=== PATIENT | female | born 1980 | race American Indian/Alaskan Native ===

== ENCOUNTER 2019-07-05 02:40 | Emergency (ER) | payer MEDICAID ==
[2019-07-05] MEDS ORDERED: Sodium Chloride 0.9% 10 ML Syringe FLUSH PRN (02:48)
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
[2019-07-05] MEDS ORDERED: Bacitracin Oint 1 GM U/D Packet ONE (04:20)
[2019-07-05] MEDS ORDERED: Bacitracin Oint 1 GM U/D Packet TOP ONE (04:57)
[2019-07-05] MEDS ORDERED: Acetaminophen 325 MG Tab PO ONE (06:54)
[2019-07-05] MEDS ORDERED: Acetaminophen 325 MG Tab, 50 Tab Bulk Bottle PO ONE (10:32)
[2019-07-05] MEDS ORDERED: Acetaminophen 500 MG Tab PO ONE (10:37)
== END 2019-07-05 11:32 | disposition home or self-care (01) ==
LOC: JP.ED 02:40
DX: S01.511A Laceration without foreign body of lip, initial encounter (principal); S51.812A Laceration without foreign body of left forearm, initial encounter; F10.920 Alcohol use, unspecified with intoxication, uncomplicated; R45.1 Restlessness and agitation; Z88.5 Allergy status to narcotic agent; Z88.8 Allergy status to other drugs, medicaments and biological substances; Y09 Assault by unspecified means; Y92.810 Car as the place of occurrence of the external cause
CPT/HCPCS: 12005; 36415; 70450; 70486; 80053; 84703; 85025; 99284; 99285-25; A9270-GY; G0480

== ENCOUNTER 2020-01-19 08:28 | Emergency (ER) | payer MEDICAID ==
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
--- NOTE | 2020-01-19 09:54 | CR ---
Shoulder Comp Rt CLINICAL HISTORY: CHF FINDINGS: There is no acute fracture or dislocation in the right shoulder. Impression: Negative
== END 2020-01-19 09:53 | disposition home or self-care (01) ==
LOC: JP.ED 08:28
DX: F41.9 Anxiety disorder, unspecified (principal); F10.129 Alcohol abuse with intoxication, unspecified; Z95.0 Presence of cardiac pacemaker; Z88.5 Allergy status to narcotic agent; Z88.8 Allergy status to other drugs, medicaments and biological substances; Z88.6 Allergy status to analgesic agent; Z98.890 Other specified postprocedural states; Y90.5 Blood alcohol level of 100-119 mg/100 ml
CPT/HCPCS: 36415; 73030-26-RT; 73030-RT; 80053; 80305-QW; 80307; 81001; 85025; 99283; 99284-25

== ENCOUNTER 2023-01-27 18:23 | Emergency (ER) | payer MEDICAID ==
[2023-01-27] MEDS ORDERED: cefTRIAXone 1 GM in Sodium Chloride 0.9% 50 ML IV ONE (19:44)
[2023-01-27] MEDS ORDERED: Sodium Chloride 0.9% 1,000 ML IV SCH (19:45)
[2023-01-27] MEDS ORDERED: Ondansetron 4 MG/2 ML SDV IVPUSH ONE (19:46)
[2023-01-27 19:50] LABS: APPEARANCE,URINE SLIGHTLY CLOUDY (CLEAR); BILIRUBIN,URINE NEGATIVE (NEGATIVE); COLOR,URINE YELLOW (YELLOW); GLUCOSE,URINE NEGATIVE (NEGATIVE); KETONES,URINE TRACE mg/dL (NEGATIVE); LEUKOCYTE ESTERASE,URINE SMALL (NEGATIVE); NITRITE,URINE NEGATIVE (NEGATIVE); OCCULT BLOOD,URINE LARGE (NEGATIVE); PH,URINE 5.5 (5.0-8.0); PROTEIN,URINE 30 mg/dL (NEGATIVE); UROBILINOGEN,URINE 0.2 EU/dL (0.2-1.0)
[2023-01-27 19:56] LABS: EPITHELIAL CELLS,URINE MANY; MUCUS,URINE NOT SEEN
[2023-01-27 19:56] LABS: BASOPHILS ABSOLUTE AUTO 0.04 K/uL (0.00-0.10); BASOPHILS PERCENT AUTO 0.2 % (0.1-1.3); EOSINOPHILS PERCENT AUTO 0.1 % (0.0-5.4); HEMATOCRIT 32.5 % (34.3-46.0); HEMOGLOBIN 11.1 g/dL (11.2-15.5); IMMATURE GRAN ABSOLUTE AUTO 0.12 K/uL (0.00-0.23); IMMATURE GRAN PERCENT AUTO 0.7 % (0.0-0.7); LYMPHOCYTES ABSOLUTE AUTO 1.32 K/uL (0.8-3.3); LYMPHOCYTES PERCENT AUTO 7.8 % (11.4-47.7); MEAN CORPUSCULAR HEMOGLOBIN 30.5 pg (31.6-35.5); MEAN CORPUSCULAR HGB CONC 34.2 g/dL (31.6-35.5); MEAN CORPUSCULAR VOLUME 89.3 fL (81.4-99.0); MONOCYTES ABSOLUTE AUTO 1.01 K/uL (0.20-0.90); NEUTROPHILS ABSOLUTE AUTO 14.46 K/uL (1.0-7.6); NEUTROPHILS PERCENT AUTO 85.2 % (40.0-78.1); PLATELET COUNT,PLT 240 K/uL (130-375); RED BLOOD CELL COUNT 3.64 M/uL (3.77-5.24)
[2023-01-27 19:57] LABS: AMORPHOUS SEDIMENT,URINE FEW; BACTERIA,URINE MODERATE
[2023-01-27] MEDS ORDERED: Sodium Chloride 0.9% 50 ML IV SCH (20:00)
[2023-01-27] MEDS ORDERED: Iopamidol 612 MG/ML 100 ML Bottle IV SCH (20:00)
[2023-01-27 20:01] LABS: EOSINOPHILS ABSOLUTE AUTO 0.01 K/uL (0.00-0.40)
[2023-01-27 20:13] LABS: EST CRCL DRUG DOSING (CG) 54.74 mL/min
[2023-01-27] MEDS ORDERED: Doxycycline 200 MG in Sodium Chloride 0.9% 250 ML IV ONE (20:44)
[2023-01-27] MEDS ORDERED: HYDROmorphone 1 MG/ML Syringe IVPUSH ONE (21:26)
[2023-01-27] MEDS ORDERED: Naloxone 0.4 MG/ML SDV IVPUSH PRN (21:26)
[2023-01-27] MEDS ORDERED: HYDROmorphone 0.5 MG/0.5 ML Syringe ONE (22:25)
[2023-01-31 11:12] LABS: CHLAMYDIA TRACHOMATIS, NAA Negative (Negative); NEISSERIA GONORRHOEAE, NAA Negative (Negative)
== END 2023-01-27 22:53 ==
LOC: JP.ED 18:23
DX: N70.93 Salpingitis and oophoritis, unspecified (principal); J45.909 Unspecified asthma, uncomplicated; Z88.5 Allergy status to narcotic agent; Z88.8 Allergy status to other drugs, medicaments and biological substances; Z72.0 Tobacco use; Z20.822 Contact with and (suspected) exposure to COVID-19
CPT/HCPCS: 36415; 74177; 80048; 81001; 81025; 82150; 83605; 85025; 87491; 87591; 87635; 96365; 96366; 96367; 96375; 99284; 99285; J0696; J1170; J2405; J3490; J7030; J7050; Q9967; U0002

== ENCOUNTER 2023-02-05 12:50 | Emergency (ER) | payer MEDICAID ==
[2023-02-05] MEDS ORDERED: Sodium Chloride 0.9% 10 ML Syringe FLUSH PRN (13:54)
[2023-02-05 14:10] LABS: BASOPHILS ABSOLUTE AUTO 0.05 K/uL (0.00-0.10); BASOPHILS PERCENT AUTO 0.8 % (0.1-1.3); EOSINOPHILS ABSOLUTE AUTO 0.03 K/uL (0.00-0.40); EOSINOPHILS PERCENT AUTO 0.5 % (0.0-5.4); HEMATOCRIT 33.1 % (34.3-46.0); HEMOGLOBIN 11.2 g/dL (11.2-15.5); IMMATURE GRAN ABSOLUTE AUTO 0.03 K/uL (0.00-0.23); IMMATURE GRAN PERCENT AUTO 0.5 % (0.0-0.7); LYMPHOCYTES ABSOLUTE AUTO 2.77 K/uL (0.8-3.3); LYMPHOCYTES PERCENT AUTO 46.2 % (11.4-47.7); MEAN CORPUSCULAR HEMOGLOBIN 29.9 pg (31.6-35.5); MEAN CORPUSCULAR HGB CONC 33.8 g/dL (31.6-35.5); MEAN CORPUSCULAR VOLUME 88.5 fL (81.4-99.0); MONOCYTES ABSOLUTE AUTO 0.31 K/uL (0.20-0.90); MONOCYTES PERCENT AUTO 5.2 % (3.3-12.6); NEUTROPHILS PERCENT AUTO 46.8 % (40.0-78.1); PLATELET COUNT,PLT 469 K/uL (130-375); RED BLOOD CELL COUNT 3.74 M/uL (3.77-5.24)
[2023-02-05 14:39] LABS: A/G RATIO 0.9 (1.2-2.2); ALANINE AMINOTRANSFERASE,ALT 55 U/L (12-78); ALBUMIN 3.5 g/dL (3.4-5.0); ALKALINE PHOSPHATASE 145 U/L (46-116); ASPARTATE AMNIOTRANSFERASE,AST 20 U/L (15-37); BILIRUBIN TOTAL 0.3 mg/dL (0.2-1.0); BLOOD UREA NITROGEN,BUN 16 mg/dL (7-18); CALCIUM 9.4 mg/dL (8.5-10.1); CARBON DIOXIDE,CO2 31 mmol/L (21-32); CHLORIDE,CL 102 mmol/L (100-108); EST CRCL DRUG DOSING (CG) 57.37 mL/min; ESTIMATED GFR 72 mL/min (>60); GLUCOSE RANDOM 102 mg/dL (74-106); POTASSIUM,K 3.8 mmol/L (3.6-5.2); PROTEIN TOTAL,TP 7.5 g/dL (6.4-8.2); SODIUM,NA 139 mmol/L (140-148)
[2023-02-05 14:47] LABS: ANION GAP 9.8 mmol/L (5.0-14.0)
== END 2023-02-05 14:45 | disposition left against medical advice (07) ==
LOC: JP.ED 12:50
DX: R10.32 Left lower quadrant pain (principal); J45.909 Unspecified asthma, uncomplicated; Z88.5 Allergy status to narcotic agent; Z88.1 Allergy status to other antibiotic agents; Z88.8 Allergy status to other drugs, medicaments and biological substances; Z91.048 Other nonmedicinal substance allergy status
CPT/HCPCS: 36415; 80053; 83605; 85025; 99284